=== PATIENT | male | born 1945 | race Caucasian/White ===

== ENCOUNTER 2025-02-09 09:48 | Outpatient (CLI) | payer MEDICARE, OTHER | END 2025-02-09 09:49 | disposition home or self-care (01) | LOC: CSHMRI 09:48 | PROVIDERS: ATTEND Orthopaedic Surgery | DX: M47.816 Spondylosis without myelopathy or radiculopathy, lumbar region (principal); M51.369 Other intervertebral disc degeneration, lumbar region without mention of lumbar back pain or lower extremity pain; M48.061 Spinal stenosis, lumbar region without neurogenic claudication; M51.379 Other intervertebral disc degeneration, lumbosacral region without mention of lumbar back pain or lower extremity pain | CPT/HCPCS: 72148 ==